=== PATIENT | male | born 1945 | race Caucasian/White ===

== ENCOUNTER 2024-04-13 11:51 | Emergency (ER) | payer MEDICARE ==
[~2024-04-13] VITALS: Ht 170.2 cm; Wt 52.7 kg
[2024-04-13 12:03] VITALS: TEMP 96.8
[2024-04-13 14:56] LABS: INR 1.2 (0.8-3.0)
[2024-04-13 14:59] LABS: PARTIAL THROMBOPLASTIN TIME 18.3 SECONDS (26.0-37.0)
[2024-04-13 15:07] LABS: ALBUMIN 3.7 g/dL (3.4-4.8); BILIRUBIN,TOTAL 0.5 mg/dL (0.2-1.2); CALCIUM 9.7 mg/dL (8.4-10.2); CREATININE, serum 1.83 mg/dL (0.72-1.25); MAGNESIUM 2.4 mg/dL (1.6-2.6); TOTAL PROTEIN 7.5 g/dl (6.2-8.1)
[2024-04-13 15:18] LABS: TROPONIN-I 5.307 ng/mL (0.00-0.033)
[2024-04-13] MEDS ORDERED: NS 100 ML IV SCH (15:24)
[2024-04-13] MEDS ORDERED: Iohexol 300 - 100 ML VIAL IV ONE (15:25)
[2024-04-13 16:08] LABS: TSH w REFLEX 1.057 uIU/mL (0.350-4.940)
[2024-04-13 16:18] LABS: BASO % 0.3 % (0.0-2.0); EOS % 0.1 % (0.0-4.0); GRAN # 7.9 K/mm3 (1.4-6.5); GRAN % 77.1 % (42.2-75.2); HEMATOCRIT 38.2 % (42.0-52.0); HEMOGLOBIN 12.7 g/dl (13.5-18.0); LYMPH # 1.2 K/mm3 (1.2-3.4); LYMPH % 11.4 % (20.0-51.0); MEAN CELL VOLUME 91 fl (80.0-100.0); MEAN CORPUSCULAR HEMOGLOBIN 30 pg (27-31); MEAN CORPUSCULAR HGB CONC 33 g/dl (33.0-37.0); MEAN PLATELET VOLUME 10.4 fl (7.4-10.4); MONO # 1.1 K/mm3 (0.1-0.6); MONO % 10.5 % (1.7-9.3); PLATELET COUNT 209 K/mm3 (130-400); RED BLOOD COUNT 4.21 M/mm3 (4.20-5.60); REDCELL DISTRIBUTION WIDTH-CV 14.6 % (11.5-14.5)
[2024-04-13] MEDS ORDERED: NEURONTIN300 MG/CAP PO (16:35)
[2024-04-13] MEDS ORDERED: ARICEPT10 MG PO (16:36)
[2024-04-13] MEDS ORDERED: TENORMIN 5050 MG/TAB PO (16:37)
[2024-04-13] MEDS ORDERED: Ondansetron 4 MG/2 ML VIAL IV ONE (17:15)
[2024-04-13] MEDS ORDERED: Clopidogrel 300 MG DOSE (75 mg x 4 tabs) PO ONE (17:15)
[2024-04-13] MEDS ORDERED: Heparin 5,000 UNITS/ML 1 ML VIAL IV PRN (17:30)
[2024-04-13] MEDS ORDERED: Heparin 5,000 UNITS/ML 1 ML VIAL IV ONE (17:30)
[2024-04-13] MEDS ORDERED: Heparin/D5W 250 ML IV SCH (17:30)
[2024-04-13 18:14] LABS: INR 1.3 (0.8-3.0); PROTHROMBIN TIME 14.2 SECONDS (9.7-12.8)
[2024-04-13 18:15] LABS: PARTIAL THROMBOPLASTIN TIME 18.3 SECONDS (26.0-37.0)
[2024-04-13 18:28] LABS: HEMATOCRIT 37.6 % (42.0-52.0); HEMOGLOBIN 12.2 g/dl (13.5-18.0); MEAN CELL VOLUME 93 fl (80.0-100.0); MEAN CORPUSCULAR HEMOGLOBIN 30 pg (27-31); MEAN CORPUSCULAR HGB CONC 32 g/dl (33.0-37.0); MEAN PLATELET VOLUME 11.5 fl (7.4-10.4); PLATELET COUNT 228 K/mm3 (130-400); RED BLOOD COUNT 4.06 M/mm3 (4.20-5.60); REDCELL DISTRIBUTION WIDTH-CV 14.7 % (11.5-14.5)
[2024-04-13] MEDS ORDERED: fentaNYL 50 MCG/ML 2 ML VIAL IV ONE (18:30)
[2024-04-13 19:30] VITALS: BP 90/40; PULSE 36
== END 2024-04-13 19:30 | disposition short-term general hospital (02) ==
LOC: COL.ER 11:51
PROVIDERS: Emergency Medicine; Personal Emergency Response Attendant
DX: I21.4 Non-ST elevation (NSTEMI) myocardial infarction (principal); N17.9 Acute kidney failure, unspecified; R74.01 Elevation of levels of liver transaminase levels; R79.0 Abnormal level of blood mineral
CPT/HCPCS: J1644; J2405; J3010; Q9967